=== PATIENT | female | born 1985 | race Caucasian/White ===

== ENCOUNTER 2023-11-28 08:25 | Emergency (ER) | payer OTHER, SELFPAY ==
[2023-11-28 08:26] VITALS: BP 153/105
[2023-11-28 08:46] LABS: % Basophils 0.6 % (0-2); % Eosinophils 1.6 % (0-6); % Immature Granulocytes 0.2 % (0-0.5); % Lymphocytes 34.1 % (20.5-51.1); % Monocytes 9.2 % (1.7-9.3); % Neutrophils 54.3 % (42.2-75.2); Absolute Eosinophils 0.1 10^3/uL (0-0.7); Absolute Lymphocytes 2.2 10^3/uL (1.2-3.4); Absolute Monocytes 0.6 10^3/uL (0.1-0.6); Absolute Neutrophils 3.5 10^3/uL (1.4-6.5); Hemoglobin 12.4 g/dL (12.0-16.0); Mean Corp Hgb Conc. 34.4 g/dL (33.0-37.0); Mean Corpuscular Hgb 26.7 pg (27.0-31.0); Mean Corpuscular Volume 77.4 fL (81.0-99.0); Mean Platelet Volume 8.7 fL (7.4-10.4); Nucleated Red Blood Cells % 0 %; Platelet Count 342 10^3/uL (130-400); Red Blood Cell Count 4.65 10^6/uL (4.20-5.40); Red Cell Dist. Width 14.4 % (11.5-14.5); White Blood Cell Count 6.4 10^3/uL (4.8-10.8)
[2023-11-28 08:57] LABS: HCG, Serum Qualitative Screen Negative
[2023-11-28 09:00] LABS: ALT (SGPT) 15 U/L (0-35); AST (SGOT) 20 U/L (14-36); Albumin 4.2 g/dl (3.5-5.0); Alkaline Phosphatase 61 U/L (38-126); Blood Urea Nitrogen 11 mg/dl (7-17); Calcium 9.5 mg/dl (8.4-10.2); Carbon Dioxide 24 mmol/L (22-30); Chloride 105 mmol/L (98-107); Glucose 79 mg/dl (70-99); Potassium 4.4 mmol/L (3.5-5.1); Sodium 139 mmol/L (135-145); Total Bilirubin 0.6 mg/dl (0.2-1.3); Total Protein 7.3 g/dl (6.3-8.2); eGFR > 60.00
[2023-11-28 09:19] LABS: Lipase 124 U/L (23-300)
[2023-11-28] MEDS: TORADOL 15 MG IV (10:36)
[2023-11-28 10:37] VITALS: BMI 37.5
[2023-11-28 10:47] LABS: Urine Albumin Negative (Neg - Trace); Urine Bilirubin Negative (Negative); Urine Character Clear (Clear); Urine Color Yellow; Urine Glucose Negative (Negative); Urine Ketone Negative (Negative); Urine Leukocyte Negative (Negative); Urine Nitrite Negative (Negative); Urine Occult Blood Negative (Negative); Urine Urobilinogen Negative (Neg - 1+)
[2023-11-28 11:00] VITALS: BP 125/83
--- NOTE | 2023-11-28 11:52 | ED.GENMED ---
History of Present Illness
General
Chief Complaint: Abdominal Symptoms
Source: patient
Exam Limitations: none
Time Seen by Provider: 11/28/23 09:59
Nursing documentation reviewed up to this point in time: agreed with
Travel History
Have you had any contact with someone who has COVID-19?: No
Do you have any symptoms of coronavirus? Fever > 100 degrees, chills, cough, shortness of breath, sore throat, loss of taste or smell, muscle aches, or headache?: No
History of Present Illness
History of Present Illness:
38-year-old female without significant past medical history presenting to the emergency department today with concerns of left lower quadrant abdominal pain starting roughly an hour ago prior to arrival. Denies nausea vomiting change in bowel
movements symptoms improvement sitting still.
Review of Systems
Review of Systems
Allergies reviewed?: Yes
All Other Systems: ROS reviewed and negative except as documented in HPI and ROS
Phy Exam
Physical Exam
Physical Exam:
GENERAL: Alert , in no apparent distress
EYE: pupils equal and reactive
NECK: Supple, no significant adenopathy.
ENT: o/p clr, mmm.
CARDIAC: Regular rate and rhythm .
LUNGS: Clear breath sounds bilaterally, no acute respiratory distress, no wheezes/rales/rhonchi
ABDOMEN: Reproducible tenderness to the left lower quadrant otherwise soft benign abdomen.
NEUROLOGICAL: Alert and oriented, no focal neuro deficits
SKIN: Warm and dry, skin intact.
MUSCULOSKELETAL: No edema, well perfused.
PSYCH: Normal and appropriate interaction.
Course
Orders/Labs/Results
Orders:
Orders
11/28/23 08:30
Test Result ONCE
11/28/23 08:34
Complete Blood Count/With Diff Urgent
Comprehensive Metabolic Panel Urgent
HCG, Serum Qualitative Screen Urgent
Lipase Urgent
11/28/23 10:15
CT Abd/Pel (IV only)-DH only Urgent
Comment:
Reason For Exam: llq pain
11/28/23 10:32
Urinalysis Reflex To Culture Urgent
Date Specimen was Collected: 11/28/23
Time Specimen was Collected: 10:26
Ketorolac [Toradol] 15 mg IV NOW STA
Abnormal Lab Results
11/28/23
08:34
Hct 36.0 L %
(37.0-47.0)
MCV 77.4 L fL
(81.0-99.0)
MCH 26.7 L pg
(27.0-31.0)
Creatinine 0.5 L mg/dL
(0.6-1.0)
11/28/23 08:34
11/28/23 08:34
Vital Signs
Initial and Last Documented VS:
Initial Vital Signs
Temp Pulse Resp BP Pulse Ox
98.3 F 67 16 153/105 98
11/28/23 08:26 11/28/23 08:26 11/28/23 08:26 11/28/23 08:26 11/28/23 08:26
Last Documented Vital Signs
Temp Pulse Resp BP Pulse Ox
98.3 F 67 16 125/83 98
11/28/23 08:26 11/28/23 08:26 11/28/23 08:26 11/28/23 11:00 11/28/23 11:45
MDM/Problems Addressed
MDM/Problems Addressed:
38-year-old female presenting to the emergency department today with concerns of left lower quadrant abdominal pain that started 1 hour prior to arrival. Here she has reproducible pain to the left lower quadrant. Vital signs normal labs
unremarkable urinalysis normal CT scan with no emergent findings. Patient comfortable throughout ER stay. Appears stable for outpatient follow-up with primary care doctor return precautions given.
*Critical Care Note
Total Time (30-74mins, 75-104mins- exclusive of procedures): Not Applicable
ED Attending Note
-
Portions of this chart may have been created with voice recognition software.� Occasional wrong word or��sound alike� substitutions may have occurred due to the inherent limitations of voice recognition software.
Discharge Plan
Departure
Patient Disposition: Home (Routine Discharge)
Date of Disposition: 11/28/23
Time of Disposition: 12:00
Patient with high blood pressure during this ER visit?: No
Condition: Good
Covid-19: Not Applicable
Discharge Problem:
Abdominal pain
Instructions: Abdominal Pain
Prescriptions:
No Action
Vitamin tablet
1 tab PO DAILY
Fish Oil
50 mcg PO Daily
Referrals:
NONE,* [Family Provider] -
Stand Alone Forms: Return to Work
Activity Restrictions/Additional Instructions:
You came to the emergency department today with concerns of abdominal discomfort. Here you had a reassuring evaluation with normal labs urinalysis and CT scan. Please follow close with the primary care doctor. Return to the emergency department
for any worsening, new or concerning symptoms.
Interventions
Interventions:
*Risk Screen - Suicide Last Done: 11/28/23 10:50
*Neglect/Abuse Screening Last Done: 11/28/23 10:50
*ED COVID-19 Vaccine History Last Done: 11/28/23 08:26
*Nursing Disposition Last Done: 11/28/23 12:19
KJ-Opicvm-Ozwkmvomje Assessment Last Done: 11/28/23 11:06
Discharge Date and Time
Discharge Date/Time: 11/28/23 12:19
Print Language: [id number]
== END 2023-11-28 12:19 | disposition home or self-care (01) ==
LOC: EMR 08:25
PROVIDERS: Physician Assistant; EMERGENCY PHYSICIAN Emergency Medicine
DX: R10.32 Left lower quadrant pain (principal)
CPT/HCPCS: 99285; 96374; 74177; 80053; 81003; 83690; 84703; 85025; Q9967